=== PATIENT | female | born 1990 | race Caucasian/White ===

== ENCOUNTER 2021-01-15 03:06 | Emergency (ER) | payer OTHER ==
[~2021-01-15] VITALS: Ht 162.6 cm; Wt 109.1 kg
[2021-01-15 03:10] VITALS: Ht 162.6 cm; Wt 109.1 kg
[2021-01-15] MEDS ORDERED: LEXAPRO20 MG PO (03:12)
[2021-01-15 05:13] VITALS: BP 115/58
== END 2021-01-15 05:00 | disposition home or self-care (01) ==
LOC: D.ER 03:06
DX: R55 Syncope and collapse (principal); S93.402A Sprain of unspecified ligament of left ankle, initial encounter; W18.11XA Fall from or off toilet without subsequent striking against object, initial encounter; Y93.9 Activity, unspecified; Y92.9 Unspecified place or not applicable